=== PATIENT | female | born 1940 | race Caucasian/White ===

== ENCOUNTER 2016-10-26 12:10 | Emergency (ER) | payer MEDICARE ==
[~2016-10-26] VITALS: Ht 175.3 cm; Wt 66.1 kg
[~2016-10-26 12:10] MED LIST: AMIO200; COLY4000S PO; FLEEENE3 RE; LEVO50TA48 PO; MIAC200S; PACE200T4 PO; ST JTAB PO; ULTR50TA OR
[2016-10-26 12:17] VITALS: BP 147/68; PULSE 85; RESP 16; TEMP 97.9; O2SAT 97
[2016-10-26] MEDS ORDERED: ASPI81CH CHEW (12:52)
[2016-10-26] MEDS ORDERED: CALC200S NASAL (12:52)
[2016-10-26] MEDS ORDERED: LEVO.05 PO (12:52)
[2016-10-26] MEDS ORDERED: PENI500T PO (13:00)
--- NOTE | 2016-10-26 13:12 | PD ---
HPI Chief Complaint: Fall Time Seen by Provider: 12:39 Travel History International Travel<30 days: No Contact w/Intl Traveler<30days: No Traveled to known affect area: No History of Present Illness HPI 76 year-old female presents to the emergency room for evaluation of a laceration and multiple abrasions after trip and fall just prior to arrival. Patient was walking down the sidewalk when she tripped over her feet. A forward and landed with her chin on the concrete. Patient denies loss of consciousness, nausea, vomiting, or headache. She takes 81 mg aspirin daily. She did not hit the upper part of her head. She denies any dental pain. States she put her arms out to catch herself prior to hitting her face. She bit her bottom lip with her tooth and began bleeding immediately. She has abrasions on bilateral hands, her left knee, and her chin. She went home and washed up and then really she would probably need antibiotics for the cut on her mouth. Up-to-date on tetanus. PFSH Past Medical History Atrial Fibrillation: Yes Cardiovascular Problems: No Diabetes: No Diminished Hearing: No Hepatitis: No Hiatal Hernia: No Respiratory: Yes (nodule to the left lung) Immunizations Current: Yes Thyroid Disease: Yes Tetanus Vaccination: < 5 Years Influenza Vaccination: Yes Menopausal: Yes : 2 Para: 1 Past Surgical History Abdominal Surgery: Yes (colon resection appendectomy) Appendectomy: Yes Gynecologic Surgery: Yes (hysterectomy) Hysterectomy: Yes Pacemaker: No Other Surgery: Yes Social History Alcohol Use: No Tobacco Use: No Substance Use: No Allergies-Medications (Allergen,Severity, Reaction): Coded Allergies: monosodium glutamate (Unverified Allergy, Severe, anxious migraines insomnia, 10/26/16) sulfite (Unverified Allergy, Severe, anxious insomnia, 10/26/16) Reported Meds & Prescriptions Reported Meds & Active Scripts Active Penicillin V Potassium 500 Mg Tab 500 Mg PO Q8H 7 Days Reported Calcitonin ([place]) Nasal [place] (Calcitonin [place]) 200 Units/Act Soln 1 [place] NASAL DAILY Alternate nostrils daily. Aspirin 81 Mg Chew 81 Mg CHEW DAILY Synthroid (Levothyroxine Sodium) 50 Mcg Tab 50 Mcg PO DAILY Review of Systems Except as stated in HPI: all other systems reviewed are Neg Physical Exam Narrative GENERAL: Well-nourished, well-developed female in no acute distress. Afebrile. Ambulatory. SKIN: Focused skin assessment warm/dry. Multiple superficial abrasions to bilateral palms, left knee, [place], and right elbow. HEAD: Normocephalic. EYES: No scleral icterus. No injection or drainage. NECK: Supple, trachea midline. No JVD or lymphadenopathy. No midline tenderness. Full range of motion. ENT: Mucosa pink and moist. No erythema or exudates. No uvular edema. No uvular , palatal, or tonsillar deviation. Airway patent. There is a large hematoma to the bottom lip with a small, less than 5 mm superficial laceration. DENTAL: No loose or chipped teeth. No malocclusion. CARDIOVASCULAR: Regular rate and rhythm without murmurs, gallops, or rubs. RESPIRATORY: Breath sounds equal bilaterally. No accessory muscle use. MSK: Full range of motion of upper and lower extremities. Distal sensation and pulses intact. No obvious edema. NEUROLOGICAL: Awake and alert. Cranial nerves II through XII intact. Motor and sensory grossly within normal limits. Five out of 5 muscle strength in all muscle groups. Normal speech. Data Data Last Documented VS Vital Signs Date Time Temp Pulse Resp B/P (MAP) Pulse Ox O2 Delivery O2 Flow Rate FiO2 10/26/16 12:54 20 10/26/16 12:17 97.9 85 147/68 (94) 97 MDM Medical Decision Making Medical Screen Exam Complete: Yes Emergency Medical Condition: Yes Medical Record Reviewed: Yes Differential Diagnosis Contusion, abrasion, fracture, sprain, strain Narrative Course 76-year-old female presents to the emergency room for evaluation of multiple abrasions and lip laceration after trip and fall just prior to arrival. Patient tripped over her feet on the sidewalk and fell forward landing on bilateral hands, left knee, and chin. She denies loss of consciousness. She did not hit her head (other than her chin). Denies neck or back pain. Denies extremity pain. She is ambulatory. No focal neurological deficits. No midline tenderness of the spine. No indication for emergent brain imaging at this time. There are multiple abrasions which patient cleaned at home and applied triple antibiotic ointment to. There are no lacerations requiring repair at this time. There are 2, superficial, less than 5 mm lacerations to the lower lip with surrounding hematoma. Patient was encouraged any ice to reduce swelling. She'll be discharged with prescription for penicillin for intraoral laceration. Told to follow up with a primary care physician or return for worsening symptoms. She understands and agrees to plan. Diagnosis Primary Impression: Multiple abrasions Additional Impression: Contusion of lip Qualified Codes: S00.531A - Contusion of lip, initial encounter Referrals: Primary Care Physician Additional Instructions: Rest and drink plenty of fluids. Take penicillin as directed, until gone. Apply ice to the affected area 20 minutes at a time 5 times a day. Apply triple antibiotic ointment to wounds daily. Change dressings daily. Follow up with a primary care physician. Return to emergency room for worsening symptoms, as discussed. Scripts Penicillin V Potassium (Penicillin V Potassium) 500 Mg Tab 500 MG PO Q8H for Infection for 7 Days, TAB 0 Refills Prov: Earnest Bravo MD 10/26/16 Disposition: 01 DISCHARGE HOME Condition: Stable Karen Bose Oct 26, 2016 13:12
== END 2016-10-26 13:22 | disposition home or self-care (01) ==
LOC: PHEFT 12:10
DX: S00.531A Contusion of lip, initial encounter (principal); S60.512A Abrasion of left hand, initial encounter; S60.511A Abrasion of right hand, initial encounter; S80.212A Abrasion, left knee, initial encounter; S80.812A Abrasion, left lower leg, initial encounter; S50.311A Abrasion of right elbow, initial encounter; E07.9 Disorder of thyroid, unspecified; W01.0XXA Fall on same level from slipping, tripping and stumbling without subsequent striking against object, initial encounter; Y92.480 Sidewalk as the place of occurrence of the external cause; Z79.82 Long term (current) use of aspirin; Z86.79 Personal history of other diseases of the circulatory system; Z87.09 Personal history of other diseases of the respiratory system
CPT/HCPCS: 99283